=== PATIENT | female | born 1990 | race Caucasian/White ===

== ENCOUNTER 2020-09-18 11:37 | Observation (INO) | payer MEDICAID ==
[~2020-09-18] VITALS: Ht 157.5 cm; Wt 55.3 kg
[2020-09-18] MEDS ORDERED: PNV1TABL50 MT (13:00)
== END 2020-09-18 13:15 | disposition home or self-care (01) ==
LOC: 8 EST LDRP 11:37
PROVIDERS: ADMIT Obstetrics & Gynecology; ATTEND Obstetrics & Gynecology
DX: O98.213 Gonorrhea complicating pregnancy, third trimester (principal); U07.1 COVID-19; Z3A.29 29 weeks gestation of pregnancy
CPT/HCPCS: 59025; G0378; U0003; 99281

== ENCOUNTER 2020-09-20 13:39 | Observation (INO) | payer MEDICAID ==
[~2020-09-20] VITALS: Ht 157.5 cm; Wt 55.3 kg
[~2020-09-20 13:39] MED LIST: PNV1TABL50 MT
== END 2020-09-20 15:15 | disposition home or self-care (01) ==
LOC: L&D 13:39
PROVIDERS: ADMIT Obstetrics & Gynecology; ATTEND Obstetrics & Gynecology
DX: O48.0 Post-term pregnancy (principal); Z3A.40 40 weeks gestation of pregnancy; O98.513 Other viral diseases complicating pregnancy, third trimester; U07.1 COVID-19
CPT/HCPCS: 59025; G0378; 99281